=== PATIENT | female | born 1955 | race Caucasian/White ===

== ENCOUNTER → 2018-11-29 | Outpatient (CLI) | payer OTHER ==
--- NOTE | 2018-11-29 12:45 | RAD ---
MR#: [id number] Date of Study: 11/29/2018 Ordering Physician: ALEXIS CHACON, Referring Physician: PRESLEY VERGARA Tech: Delia Giraldo RT (R) (N) APPROVED REPORT Test Type: Exercise Stress Nurse/Tech: Jennifer Lara R.N. Test Indications: cp, back pain Cardiac History: athma, high chol, htn Medications: see ehr Medical History: see ehr Resting ECG: sr Resting Heart Rate: 83 bpm Resting Blood Pressure: 142/64mmHg Pretest Chest Pain: No chest pain Nurse/Tech Notes lungs cta, heart tones regular Consent: The procedure was explained to the patient in lay terms. Informed consent was witnessed. Dae eout was entered into [employer]. History and Stress Test performed by MADIHA De Stress Symptoms No chest pain or symptoms. POST EXERCISE Reason for Termination: Reached target heart rate Target HR: Yes Max HR: 153 bpm 98% of Maximum Predicted HR: 156 bpm Exercise duration: 5:23 min:sec, 2 Stage Exercise capacity: 7.0METs Max Blood Pressure: 158/82mmHg Blood Pressure response to exercise: Normal blood pressure response during stress. Heart Rate response to exercise: normal Chest Pain: No. Arrhythmia: No. ST Change: No. No significant ischemic changes INTERPRETATION Stress EKG Conclusion: Negative for ischemia Imaging Protocol IMAGE PROTOCOL: Rest Tc-99m/stress Tc-99m 1 day Rest: Stress: Viability: Radiopharm.Tc99m [id number] Sestamibi Dose10.3mCi 33mCi Duration 15min. 10min. Img Date 11/29/2018 11/29/2018 Inj-Img [id number]. 60min. Rest Admin Site:IV - Right AntecubitalAdministrator:MAGEN Strong, ARRT (R)(N) Stress Admin Site: IV - Right AntecubitalAdministrator: MADIHA De STRESS DATA End Diast. Vol.95.0mlAv. Heart Rate86.0bpm End Syst. Vol.29.0mlCO Index BSA0.0L/min Myocardial Xeug492.0gEject. Nlpedrcw08.0% Stress Rates Pk. Fill Rate4.11EDV/secLVtime Pk. Fill 200.95msec Pk. Empty Rate4.46ESV/secLVtime Pk. Soygv603.01msec 1/3 Pk. Fill1.12EDV/sec Stress Scores Regional WT1.00Summed WT7.00 Regional WM0.00Summed WM1.00 The rest and stress images show normal perfusion, normal contraction and thickening. LV Perf. Quant 17 Seg. SSS1.00 17 Seg. SRS0.00 17 Seg. SDS1.00 Stress Defect Extent (% LAD)13.10Rest Defect Extent (% LAD)10.60Rev. Defect Extent (% LAD)0.00 Stress Defect Extent (% LCX) 0.00Rest Defect Extent (% LCX)0.00Rev. Defect Extent (% LCX)0.00 Stress Defect Extent (% RCA)0.00Rest Defect Extent (% RCA)0.00Rev. Defect Extent (% RCA)0.00 Stress Defect Extent (% DANIEL)5.40Rest Defect Extent (% DANIEL)3.70Rev. Defect Extent (% DANIEL)0.00 Other Information Quality:Good Risk Assessment: Low Risk Conclusion 1. No evidence of EKG changes with stress testing. 2. Normal perfusion at stress/rest. 3. Low risk study. 4. EF > 60%. Signed by : Alexis Chacon, Electronically Approved : 11/29/2018 12:45:02
== END | disposition home or self-care (01) ==
LOC: NM 08:22
PROVIDERS: ATTEND Internal Medicine Cardiovascular Disease
DX: R07.9 Chest pain, unspecified (principal); M54.9 Dorsalgia, unspecified; J45.909 Unspecified asthma, uncomplicated; I10 Essential (primary) hypertension; E78.00 Pure hypercholesterolemia, unspecified
CPT/HCPCS: 78452; 93017; A9500